=== PATIENT | female | born 1960 | race African-American/Black ===

== ENCOUNTER 2021-04-10 15:21 | Outpatient (CLI) | payer BC | END 2021-04-10 15:22 | disposition home or self-care (01) | LOC: CSHMAMMO 15:21 | PROVIDERS: ATTEND Obstetrics & Gynecology | DX: Z12.31 Encounter for screening mammogram for malignant neoplasm of breast (principal); Z91.89 Other specified personal risk factors, not elsewhere classified | CPT/HCPCS: 77063; 77067 ==

== ENCOUNTER 2022-04-11 15:27 | Outpatient (CLI) | payer BC | END 2022-04-11 15:28 | disposition home or self-care (01) | LOC: CSHMAMMO 15:27 | PROVIDERS: ATTEND Obstetrics & Gynecology | DX: Z12.31 Encounter for screening mammogram for malignant neoplasm of breast (principal); Z91.89 Other specified personal risk factors, not elsewhere classified | CPT/HCPCS: 77063; 77067 ==

== ENCOUNTER 2024-05-12 08:39 | Outpatient (CLI) | payer BC, OTHER | END 2024-05-12 08:40 | disposition home or self-care (01) | LOC: CSHMAMMO 08:39 | PROVIDERS: ATTEND Obstetrics & Gynecology | DX: Z12.31 Encounter for screening mammogram for malignant neoplasm of breast (principal); Z91.89 Other specified personal risk factors, not elsewhere classified | CPT/HCPCS: 77063; 77067 ==

== ENCOUNTER 2025-03-29 14:53 | Outpatient (CLI) | payer OTHER | END 2025-03-29 14:54 | disposition home or self-care (01) | LOC: CSHRAD 14:53 | DX: R10.A1 Flank pain, right side (principal) | CPT/HCPCS: 74018 ==

== ENCOUNTER 2025-04-14 10:58 | Outpatient (CLI) | payer OTHER | END 2025-04-14 10:59 | disposition home or self-care (01) | LOC: CSHCT 10:58 | DX: R10.11 Right upper quadrant pain (principal); R10.A1 Flank pain, right side; N28.9 Disorder of kidney and ureter, unspecified | CPT/HCPCS: 74178 ==